=== PATIENT | female | born 1980 | race Two or more races ===

== ENCOUNTER → 2018-03-25 | Outpatient (CLI) | payer BC | LOC: FIMAGING 14:34 | PROVIDERS: ATTEND Obstetrics & Gynecology | DX: O09.523 Supervision of elderly multigravida, third trimester (principal); Z3A.27 27 weeks gestation of pregnancy ==

== ENCOUNTER → 2018-05-06 | Outpatient (CLI) | payer BC | LOC: FIMAGING 13:20 | PROVIDERS: ATTEND Obstetrics & Gynecology | DX: O09.523 Supervision of elderly multigravida, third trimester (principal); G43.909 Migraine, unspecified, not intractable, without status migrainosus; Z3A.33 33 weeks gestation of pregnancy ==

== ENCOUNTER → 2018-09-01 | Outpatient (CLI) | payer BC | LOC: FIMAGING 20:00 | PROVIDERS: ATTEND Psychiatry & Neurology Neurology | DX: G43.909 Migraine, unspecified, not intractable, without status migrainosus (principal) | CPT/HCPCS: 70551-PN ==